=== PATIENT | female | born 1945 | race Caucasian/White ===

== ENCOUNTER 2018-06-15 09:47 | Emergency (ER) | payer MEDICARE ==
[~2018-06-15] VITALS: Ht 157.5 cm; Wt 81.0 kg
[2018-06-15 09:52] VITALS: BP 174/65
[2018-06-15] MEDS ORDERED: PRED20TA PO (11:54)
[2018-06-15] MEDS ORDERED: VALA10002 PO (11:54)
[2018-06-15] MEDS ORDERED: GABA-532 PO (11:54)
[2018-06-15] MEDS ORDERED: dexamethasone 4mg tablet PO ONE (11:55)
[2018-06-15] MEDS ORDERED: DIPH-423 PO (11:55)
[2018-06-15] MEDS ORDERED: gabapentin 400mg capsule PO ONE (11:55)
== END 2018-06-15 12:15 | disposition home or self-care (01) ==
LOC: ER 09:47
DX: B02.9 Zoster without complications (principal); F43.0 Acute stress reaction
CPT/HCPCS: 99283; J8540